=== PATIENT | male | born 1995 | race Caucasian/White ===

== ENCOUNTER 2020-07-15 19:04 | Emergency (ER) | payer SELFPAY ==
[~2020-07-15] VITALS: Ht 175.3 cm; Wt 72.6 kg
--- NOTE | 2020-07-15 19:10 | NUR ---
called for triage, no answer.
--- NOTE | 2020-07-15 19:16 | NUR ---
called for triage, no answer.
--- NOTE | 2020-07-15 19:22 | NUR ---
called for triage, no answer.
--- NOTE | 2020-07-15 20:13 | NUR ---
PT AAOX4. AMBULATORY WITH STEADY GAIT. BIBSELF C/O HAVING MUSCLE CRAMPING. ALSO STATED HAVING "UTI SYMTOMS" PALCED IN BED 11 ON MONITOR AND PULSE OX. LINE ESTABLSIHED RAC 20G, BLOOD WORK COLLECTED, SENT TO LAB. AWAITING OTHER ORDERS.
[2020-07-15] MEDS ORDERED: KETOROLAC TROMETHAMINE INJ 30 MG/ML VIAL ONE (20:41)
[2020-07-15 20:53] LABS: BILIRUBIN,URINE Negative (NEGATIVE); COLOR,URINE YELLOW (YELLOW); LEUKOCYTE ESTERASE ,URINE Negative (NEGATIVE); NITRITE, URINE Negative (NEGATIVE); PROTEIN,URINE Negative (NEGATIVE); UGLUCOSE Negative (NEGATIVE)
[2020-07-15 20:53] LABS: BASOPHILS % (AUTO) 0.4 % (0.0-2.0); EOSINOPHILS % (AUTO) 0.8 % (0.0-6.0); HEMATOCRIT 50 % (39-51); HEMOGLOBIN 16.8 g/dL (13.5-17.5); LYMPHOCYTES # (AUTO) 1.7 /CMM (0.8-4.8); LYMPHOCYTES % (AUTO) 17.2 % (20.0-44.0); MEAN CORPUSCULAR HGB CONC 34 g/dl (31.0-36.0); MEAN CORPUSCULAR VOLUME 93 fL (80-96); MONOCYTES # (AUTO) 0.8 /CMM (0.1-1.30); MONOCYTES % (AUTO) 8.2 % (2.0-12.0); NEUTROPHILS # (AUTO) 7.1 /CMM (1.8-8.9); NEUTROPHILS % (AUTO) 73.4 % (43.0-81.0); PLATELET COUNT (AUTO) 205 /CMM (150-450); RED BLOOD CELL COUNT(AUTO) 5.32 MIL/uL (4.5-6.0); WHITE BLOOD COUNT (AUTO) 9.7 K/uL (4.3-11.0)
[2020-07-15] MEDS ORDERED: KETOROLAC TROMETHAMINE INJ 30 MG/ML VIAL IV ONE (21:00)
[2020-07-15] MEDS ORDERED: IV NS 0.9% 1,000 ML BAG IV ONE (21:00)
[2020-07-15 21:01] LABS: CALCIUM, SERUM 8.8 mg/dL (8.5-10.1); POTASSIUM 4.2 mmol/L (3.5-5.1)
[2020-07-15 21:05] LABS: RBC,URINE 0-2 /HPF (0-2)
[2020-07-15 21:06] LABS: BACTERIA,URINE Rare /HPF (None Seen); SQUAMOUS EPITHELIAL CELL,UR 0-2 /HPF (None Seen); WBC,URINE 0-2 /HPF (0-3)
[2020-07-15] MEDS ORDERED: CEFTRIAXONE 1 G in IV D5W 50 ML IV ONE (22:00)
[2020-07-15] MEDS ORDERED: CEFTRIAXONE 1 G VIAL ONE (22:00)
[2020-07-15] MEDS ORDERED: AZITHROMYCIN 250 MG TABLET PO ONE (22:00)
[2020-07-15] MEDS ORDERED: AZITHROMYCIN 250 MG TABLET ONE (22:00)
--- NOTE | 2020-07-15 22:33 | NUR ---
Patient discharged to home in stable condition. Written and verbal after care instructions given. Patient verbalizes understanding of instruction. Pt ambulated out of ED. VSS.
--- NOTE | 2020-07-15 22:33 | NUR ---
IV removed. Catheter intact and site benign. Pressure and 4x4 applied to site. No bleeding noted.
[2020-07-15 22:34] VITALS: BP 128/73
== END 2020-07-15 22:34 | disposition home or self-care (01) ==
LOC: ER 19:14
DX: F19.10 Other psychoactive substance abuse, uncomplicated (principal); R36.9 Urethral discharge, unspecified; E86.0 Dehydration; R25.2 Cramp and spasm; Z59.0 Homelessness
CPT/HCPCS: 36415; 80048; 80307; 81001; 82550; 85025; 87086; 96361; 96365; 96375; 99284; J0696; J1885; J7060